=== PATIENT | female | born 1970 | race Caucasian/White ===

== ENCOUNTER 2020-06-05 06:26 | Emergency (ER) | payer OTHER ==
[~2020-06-05] VITALS: Ht 167.6 cm; Wt 93.0 kg
[~2020-06-05 06:26] MED LIST: CELEXA 20 MG TA20 MG PO; DERMATOP60 GM TP; NORCO 5-325 TA1 EACH PO; SYMBICORT160 MCG/4. INH; ZOFRAN4 MG PO
[2020-06-05] MEDS ORDERED: VENLAFAXINE HC150 M1 PO (06:33)
[2020-06-05] MEDS ORDERED: PROAIR HFA8.5 GM INH (06:34)
[2020-06-05] MEDS ORDERED: SYMBICORT160 MCG/4. INH (06:34)
[2020-06-05 07:14] LABS: ABSOLUTE NEUTROPHILS 5.4 thou/uL (1.4-8.2); BASOPHILS 0.3 % (0.0-2.0); EOSINOPHILS 0.1 % (0.0-3.0); HEMATOCRIT 40.5 % (37.0-47.0); LYMPHOCYTES 17.9 % (24.0-44.0); MCH 31.2 pg (26.0-34.0); MCHC 34.6 g/dL (28.0-37.0); MONOCYTES 5.5 % (1.0-8.0); PLATELET COUNT 217 thou/uL (150-400); POLYS 76.2 % (36.0-66.0); RDW 12.8 % (10.5-14.5); WBC 7.1 thou/uL (4.0-11.0)
[2020-06-05 07:25] LABS: CALCIUM 8.4 mg/dL (8.5-10.1); CREATININE 0.9 mg/dL (0.6-1.0); POTASSIUM 3.6 mmol/L (3.5-5.1)
[2020-06-05 07:26] LABS: MAGNESIUM 1.7 mg/dL (1.8-2.4)
[2020-06-05 07:49] VITALS: BP 143/81
== END 2020-06-05 07:49 | disposition home or self-care (01) ==
LOC: ER 06:26
PROVIDERS: Emergency Medicine
DX: F19.151 Other psychoactive substance abuse with psychoactive substance-induced psychotic disorder with hallucinations (principal); R19.7 Diarrhea, unspecified; J45.909 Unspecified asthma, uncomplicated; Z79.899 Other long term (current) drug therapy